=== PATIENT | male | born 1990 | race Two or more races ===

== ENCOUNTER 2017-04-25 11:31 | Inpatient (IN) | payer SELFPAY ==
[~2017-04-25] VITALS: Ht 180.3 cm; Wt 88.9 kg
[2017-04-25] VITALS (9 sets, daily range): BP systolic 120–138; BP diastolic 68–82
[~2017-04-25 11:31] MED LIST: INSU100I17 SQ; INSU100I18 SQ; METF850T2 PO
[2017-04-25] MEDS ORDERED: IV NORMAL SALINE 1000ML BAG 1,000 ML IV SCH ×3 (11:33→13:33)
--- NOTE | 2017-04-25 11:35 | PHYS DOC ---
Past Medical History Past Medical History: No Pertinent History Past Surgical History: No Surgical History Alcohol Use: None Drug Use: None Adult General Chief Complaint Chief Complaint: BLOOD SUGAR PROBLEM HPI HPI Patient is a 26 year old male who presents with hyper glycemia. He states he was diagnosed with diabetes about 2 years ago started on metformin. He does not have a primary care physician. He states over the last several days he's been having a fever and nasal congestion and he was seen by physician today who noticed his sugar in the 200 ranges him here to be evaluated. He denies any fevers chills nausea vomiting. Does state that he has been urinating a lot and drinking a lot of water. Review of Systems Review of Systems Constitutional: Denies fever or chills [] Eyes: Denies change in visual acuity, redness, or eye pain [] HENT: Denies nasal congestion or sore throat [] Respiratory: Denies cough or shortness of breath [] Cardiovascular: No additional information not addressed in HPI [] GI: Denies abdominal pain, nausea, vomiting, bloody stools or diarrhea [] : Denies dysuria or hematuria [] Musculoskeletal: Denies back pain or joint pain [] Integument: Denies rash or skin lesions [] Neurologic: Denies headache, focal weakness or sensory changes [] Endocrine: Denies polyuria or polydipsia [] Current Medications Current Medications Current Medications Medications (Trade) Dose Ordered Sig/Kim Start Time Stop Time Status Last Admin Dose Admin Insulin Human Regular 150 unit/ Sodium Chloride 151.5 ml @ 0 mls/hr CONT PRN PRN 04/25/17 13:30 UNV Potassium Chloride 100 ml @ 100 mls/hr PRN Q1HR PRN 04/25/17 13:30 Sodium Chloride 1,000 ml @ 1,000 mls/hr Q1H 04/25/17 13:30 04/25/17 14:32 DC 04/25/17 14:21 1,000 MLS/HR Allergies Allergies Allergies Coded Allergies Type Severity Reaction Last Updated Verified No Known Drug Allergies 06/19/14 No Physical Exam Physical Exam Constitutional: Well developed, well nourished, no acute distress, non-toxic appearance. [] HENT: Normocephalic, atraumatic, bilateral external ears normal, oropharynx moist, no oral exudates, nose normal. [] Eyes: PERRLA, EOMI, conjunctiva normal, no discharge. [] Neck: Normal range of motion, no tenderness, supple, no stridor. [] Cardiovascular:Heart rate regular tachycardic rhythm, no murmur [] Lungs & Thorax: Bilateral breath sounds clear to auscultation [] Abdomen: Bowel sounds normal, soft, no tenderness, no masses, no pulsatile masses. [] Skin: Warm, dry, no erythema, no rash. [] Back: No tenderness, no CVA tenderness. [] Extremities: No tenderness, no cyanosis, no clubbing, ROM intact, no edema. [] Neurologic: Alert and oriented X 3, normal motor function, normal sensory function, no focal deficits noted. [] Psychologic: Affect normal, judgement normal, mood normal. [] Current Patient Data Vital Signs Vital Signs Date Time Temp Pulse Resp B/P (MAP) Pulse Ox O2 Delivery O2 Flow Rate FiO2 04/25/17 12:45 102 18 129/78 (95) 98 Room Air 04/25/17 11:45 98.4 98.4 Lab Values Laboratory Tests Test 04/25/17 11:52 04/25/17 11:56 04/25/17 12:00 04/25/17 12:30 Urine Collection Type Unknown Urine Color Yellow Urine Clarity Clear Urine pH 6.0 Urine Specific [place] >=1.030 Urine Protein 30 mg/dL (NEG-TRACE) Urine Glucose (UA) >=1000 mg/dL (NEG) Urine Ketones (Stick) >=80 mg/dL (NEG) Urine Blood Trace (NEG) Urine Nitrite Negative (NEG) Urine Bilirubin Negative (NEG) Urine Urobilinogen Dipstick 0.2 mg/dL (0.2 mg/dL) Urine Leukocyte Esterase Negative (NEG) Urine RBC 0 /HPF (0-2) Urine WBC 0 /HPF (0-4) Urine Squamous Epithelial Cells Few /LPF Urine Bacteria 0 /HPF (0-FEW) Urine Opiates Screen Neg (NEG) Urine Methadone Screen Neg (NEG) Urine Barbiturates Neg (NEG) Urine Phencyclidine Screen Neg (NEG) Urine Amphetamine/Methamphetamine Neg (NEG) Urine Benzodiazepines Screen Neg (NEG) Urine Cocaine Screen Neg (NEG) Urine Cannabinoids Screen Neg (NEG) Urine Ethyl Alcohol Neg (NEG) Glucose (Fingerstick) 373 mg/dL (70-99) H White Blood Count 10.6 x10^3/uL (4.0-11.0) Red Blood Count 5.57 x10^6/uL (4.30-5.70) Hemoglobin 15.3 g/dL (13.0-17.5) Hematocrit 45.9 % (39.0-53.0) Mean Corpuscular Volume 82 fL (79-100) Mean Corpuscular Hemoglobin 28 pg (25-35) Mean Corpuscular Hemoglobin Concent 33 g/dL (31-37) Red Cell Distribution Width 13.6 % (11.5-14.5) Platelet Count 286 x10^3/uL (140-400) Neutrophils (%) (Auto) 72 % (31-73) Lymphocytes (%) (Auto) 16 % (24-48) L Monocytes (%) (Auto) 11 % (0-9) H Eosinophils (%) (Auto) 1 % (0-3) Basophils (%) (Auto) 1 % (0-3) Neutrophils # (Auto) 7.6 x10^3uL (1.8-7.7) Lymphocytes # (Auto) 1.7 x10^3/uL (1.0-4.8) Monocytes # (Auto) 1.2 x10^3/uL (0.0-1.1) H Eosinophils # (Auto) 0.1 x10^3/uL (0.0-0.7) Basophils # (Auto) 0.1 x10^3/uL (0.0-0.2) Sodium Level 134 mmol/L (136-145) L Potassium Level 4.1 mmol/L (3.5-5.1) Chloride Level 99 mmol/L (98-107) Carbon Dioxide Level 19 mmol/L (21-32) L Anion Gap 16 (6-14) H Blood Urea Nitrogen 11 mg/dL (8-26) Creatinine 1.0 mg/dL (0.7-1.3) Estimated GFR (Cockcroft-Gault) 91.0 Glucose Level 441 mg/dL (70-99) H Calcium Level 8.5 mg/dL (8.5-10.1) Magnesium Level 1.7 mg/dL (1.8-2.4) L Total Bilirubin 0.6 mg/dL (0.2-1.0) Direct Bilirubin 0.2 mg/dL (0.0-0.2) Aspartate Amino Transferase (AST) 12 U/L (15-37) L Alanine Aminotransferase (ALT) 11 U/L (16-63) L Alkaline Phosphatase 131 U/L (46-116) H Creatine Kinase 173 U/L (39-308) Creatine Kinase MB (Mass) 2.4 ng/mL (0.0-3.6) Creatine Kinase MB Relative Index 1.4 % (0-4) Total Protein 6.8 g/dL (6.4-8.2) Albumin 3.1 g/dL (3.4-5.0) L Lipase 240 U/L (73-393) Laboratory Tests 04/25/17 12:00 Laboratory Tests 04/25/17 12:30 EKG EKG [] Radiology/Procedures Radiology/Procedures [] Impressions: DKA Course & Med Decision Making Course & Med Decision Making Pertinent Labs and Imaging studies reviewed. (See chart for details) Patient presents with hyperglycemia and his labs show DKA. He was started on the DKA protocol and is being admitted to the ICU. Dr. Da Putnam patient's being admitted to ICU in stable condition this time Critical care time: 65 minutes of critical care time was used on this patient excluding procedures. Dragon Disclaimer Dragon Disclaimer This electronic medical record was generated, in whole or in part, using a voice recognition dictation system. Departure Departure Impression: Primary Impression: DKA (diabetic ketoacidoses) Disposition: ADMITTED INPATIENT Admitting Physician: Melissa Guzman Condition: STABLE Referrals: NON,STAFF (PCP) SUDHIR KEARNEY MD Apr 25, 2017 11:35
[2017-04-25 12:12] LABS: BACTERIA,URINE 0 /HPF (0-FEW); BILIRUBIN,URINE NEGATIVE (NEG); GLUCOSE,URINE >=1000 mg/dL (NEG); NITRITE,URINE NEGATIVE (NEG); PROTEIN,URINE 30 mg/dL (NEG-TRACE); RBC,URINE 0 /HPF (0-2); SQUAMOUS EPITHELIAL CELL,UR FEW /LPF; UROBILINOGEN,URINE 0.2 mg/dL (0.2 mg/dL); WBC,URINE 0 /HPF (0-4)
[2017-04-25 12:18] LABS: BASO # 0.1 x10^3/uL (0.0-0.2); BASO % 1 % (0-3); EOS % 1 % (0-3); HEMATOCRIT 45.9 % (39.0-53.0); HEMOGLOBIN 15.3 g/dL (13.0-17.5); LYMPH # 1.7 x10^3/uL (1.0-4.8); LYMPH % 16 % (24-48); MEAN CORPUSCULAR HEMOGLOBIN 28 pg (25-35); MEAN CORPUSCULAR HGB CONC 33 g/dL (31-37); MEAN CORPUSCULAR VOLUME 82 fL (79-100); MONO % 11 % (0-9); NEUT % 72 % (31-73); PLATELET COUNT 286 x10^3/uL (140-400); RED BLOOD COUNT 5.57 x10^6/uL (4.30-5.70); RED CELL DISTRIBUTION WIDTH 13.6 % (11.5-14.5); WHITE BLOOD COUNT 10.6 x10^3/uL (4.0-11.0)
[2017-04-25 12:25] LABS: BARBITURATES NEG (NEG); BENZODIAZEPINES NEG (NEG); CANNABINOIDS NEG (NEG); COCAINE NEG (NEG); METHADONE NEG (NEG); OPIATES NEG (NEG); PHENCYCLIDINE NEG (NEG)
[2017-04-25 12:42] LABS: CALCIUM 8.5 mg/dL (8.5-10.1); POTASSIUM 4.1 mmol/L (3.5-5.1)
[2017-04-25 12:47] LABS: ALBUMIN 3.1 g/dL (3.4-5.0); DIRECT BILIRUBIN 0.2 mg/dL (0.0-0.2); TOTAL BILIRUBIN 0.6 mg/dL (0.2-1.0); TOTAL PROTEIN 6.8 g/dL (6.4-8.2)
[2017-04-25 12:56] LABS: CKMB MASS 2.4 ng/mL (0.0-3.6)
[2017-04-25] MEDS ORDERED: POTASSIUM CHLORIDE 10MEQ 100 ML IV PRN ×3 (13:30)
[2017-04-25] MEDS ORDERED: INSULIN REGULAR VIAL 150 UNIT in 0.9 % SODIUM CHLORIDE 150ML 150 ML IV PRN (13:30)
[2017-04-25] MEDS ORDERED: IV 1/2 NORMAL SALINE 1,000 ML IV SCH ×2 (13:31→13:33)
[2017-04-25] MEDS ORDERED: IV DEXTROSE 5 %-0.45 % NACL 1,000 ML IV SCH (13:33)
[2017-04-25] MEDS ORDERED: INSULIN,REGULAR 150 UNIT DRIP 150 ML IV ONE (13:45)
[2017-04-25 14:53] LABS: HCO3 ABG 14 mmol/L (21-28); PCO2 ABG 28 mmHg (35-46); PH ABG 7.31 (7.35-7.45); PO2 ABG 99 mmHg (85-108); SAT O2 ABG 97 % (92-99)
[2017-04-25] MEDS ORDERED: MAGNESIUM SULFATE 2GM 50 ML IV ONE (15:30)
--- NOTE | 2017-04-25 15:39 | PDOC1 ---
History and Physical Date of Admission Date of Admission DATE: 04/25/17 TIME: 15:30 Identification/Chief Complaint Chief Complaint generalized weakness, [facility] by [facility] Problems: Source Source: Caregiver, Chart review, Patient History of Present Illness History of Present Illness 26 y.o heavy set male, dx with DM type 1 by [facility] 2 yrs ago when he was admitted and needed to be on insulin gtt, HE tells me he takes his metformin, ( never on in insulin)- but his home meds give me novolog and levemir. Hgba1c last was 12 as per pt, BS 400s on arrival, now 293 after IVF and insulin gtt started at ER DKA protocol. BIcarb 19, gap 16, pH 7.31. NO emesis, no abd pain, Recently fighting URI sxs, nasal voice, congestion, cough, no fevers. HE thinks he got from his mother. NOn smoker, no etoh, no surgical hx, NKDA. Ketonuria and glucosuria on UA, but no UTI Past Medical History Endocrine: Diabetes Past Surgical History Past Surgical History: No pertinent history Family History Family History: Hypertension Social History Smoke: No ALCOHOL: none Drugs: None Current Medications Current Medications Current Medications Sodium Chloride 1,000 ml @ 1,000 mls/hr Q1H IV Last administered on 04/25/17 12:11; Start 04/25/17 at 11:33; Stop 04/25/17 at 12:32; Status DC Sodium Chloride 1,000 ml @ 1,000 mls/hr Q1H IV Last administered on 04/25/17 14:21; Start 04/25/17 at 13:30; Stop 04/25/17 at 14:32; Status DC Sodium Chloride 1,000 ml @ 500 mls/hr Q2H IV ; Start 04/25/17 at 13:31; Stop at 15:30 Sodium Chloride 1,000 ml @ 250 mls/hr Q4H IV Last administered on 04/25/17 15 :25; Start 04/25/17 at 13:33 Sodium Chloride 1,000 ml @ 250 mls/hr Q4H IV ; Start 04/25/17 at 13:33 Dextrose/Sodium Chloride 1,000 ml @ 250 mls/hr Q4H IV ; Start 04/25/17 at 13:33 Insulin Human Regular 150 unit/ Sodium Chloride 151.5 ml @ 0 mls/hr CONT PRN PRN IV PER PROTOCOL; Start 04/25/17 at 13:30; Status UNV Potassium Chloride 100 ml @ 100 mls/hr PRN Q1HR PRN IV SEE COMMENTS; Start at 13:30 Potassium Chloride 100 ml @ 100 mls/hr PRN Q1HR PRN IV SEE COMMENTS; Start at 13:30 Potassium Chloride 100 ml @ 100 mls/hr PRN Q1HR PRN IV SEE COMMENTS; Start at 13:30 Insulin Human Regular 150 ml @ 0 mls/hr 1X ONCE IV Last administered on t 14:21; Start 04/25/17 at 13:45; Stop 04/25/17 at 13:46; Status DC Active Scripts Active Metformin Hcl 850 Mg Tablet 1 Tab PO BID Levemir Flexpen (Insulin Detemir) 300 Units/3 Ml Insuln.pen 30 Units SQ QHS Novolog Flexpen (Insulin Aspart) 300 Units/3 Ml Insuln.pen 12 Units SQ TIDAC Allergies Allergies: Coded Allergies: No Known Drug Allergies (Unverified , 06/19/14) ROS Review of System as per hPI, all 14 pt reviewed, neg Physical Exam General: Alert, Oriented X3, Cooperative, No acute distress HEENT: Atraumatic, PERRLA, EOMI Lungs: Clear to auscultation, Normal air movement Heart: S1S2, RRR, no thrills, no rubs, no gallops, no murmurs Cardiovascular: S1, S2 Abdomen: Normal bowel sounds, Soft, No tenderness, No hepatosplenomegaly, No masses Male Genitals Exam: normal genitalia, normal prostate Rectal Exam: not examined PELVIC: Nml ext genitalia Extremities: No clubbing, No cyanosis, No edema, Normal pulses, No tenderness/ swelling Skin: No rashes, No breakdown, No significant lesion Neuro: Normal gait, Normal speech, Strength at 5/5 X4 ext, Normal tone, Sensation intact, Cranial nerves 3-12 NL, Reflexes 2+ Psych/Mental Status: Mental status NL, Mood NL Vitals Vitals Vital Signs Date Time Temp Pulse Resp B/P (MAP) Pulse Ox O2 Delivery O2 Flow Rate FiO2 04/25/17 14:58 Room Air 04/25/17 13:45 96 18 125/77 (93) 98 04/25/17 11:45 98.4 98.4 Labs Labs Laboratory Tests Test 04/25/17 11:52 04/25/17 11:56 04/25/17 12:00 04/25/17 12:30 Urine Collection Type Unknown Urine Color Yellow Urine Clarity Clear Urine pH 6.0 Urine Specific [place] >=1.030 Urine Protein 30 mg/dL (NEG-TRACE) Urine Glucose (UA) >=1000 mg/dL (NEG) Urine Ketones (Stick) >=80 mg/dL (NEG) Urine Blood Trace (NEG) Urine Nitrite Negative (NEG) Urine Bilirubin Negative (NEG) Urine Urobilinogen Dipstick 0.2 mg/dL (0.2 mg/dL) Urine Leukocyte Esterase Negative (NEG) Urine RBC 0 /HPF (0-2) Urine WBC 0 /HPF (0-4) Urine Squamous Epithelial Cells Few /LPF Urine Bacteria 0 /HPF (0-FEW) Urine Opiates Screen Neg (NEG) Urine Methadone Screen Neg (NEG) Urine Barbiturates Neg (NEG) Urine Phencyclidine Screen Neg (NEG) Urine Amphetamine/Methamphetamine Neg (NEG) Urine Benzodiazepines Screen Neg (NEG) Urine Cocaine Screen Neg (NEG) Urine Cannabinoids Screen Neg (NEG) Urine Ethyl Alcohol Neg (NEG) Glucose (Fingerstick) 373 mg/dL (70-99) White Blood Count 10.6 x10^3/uL (4.0-11.0) Red Blood Count 5.57 x10^6/uL (4.30-5.70) Hemoglobin 15.3 g/dL (13.0-17.5) Hematocrit 45.9 % (39.0-53.0) Mean Corpuscular Volume 82 fL (79-100) Mean Corpuscular Hemoglobin 28 pg (25-35) Mean Corpuscular Hemoglobin Concent 33 g/dL (31-37) Red Cell Distribution Width 13.6 % (11.5-14.5) Platelet Count 286 x10^3/uL (140-400) Neutrophils (%) (Auto) 72 % (31-73) Lymphocytes (%) (Auto) 16 % (24-48) Monocytes (%) (Auto) 11 % (0-9) Eosinophils (%) (Auto) 1 % (0-3) Basophils (%) (Auto) 1 % (0-3) Neutrophils # (Auto) 7.6 x10^3uL (1.8-7.7) Lymphocytes # (Auto) 1.7 x10^3/uL (1.0-4.8) Monocytes # (Auto) 1.2 x10^3/uL (0.0-1.1) Eosinophils # (Auto) 0.1 x10^3/uL (0.0-0.7) Basophils # (Auto) 0.1 x10^3/uL (0.0-0.2) Sodium Level 134 mmol/L (136-145) Potassium Level 4.1 mmol/L (3.5-5.1) Chloride Level 99 mmol/L (98-107) Carbon Dioxide Level 19 mmol/L (21-32) Anion Gap 16 (6-14) Blood Urea Nitrogen 11 mg/dL (8-26) Creatinine 1.0 mg/dL (0.7-1.3) Estimated GFR (Cockcroft-Gault) 91.0 Glucose Level 441 mg/dL (70-99) Calcium Level 8.5 mg/dL (8.5-10.1) Magnesium Level 1.7 mg/dL (1.8-2.4) Total Bilirubin 0.6 mg/dL (0.2-1.0) Direct Bilirubin 0.2 mg/dL (0.0-0.2) Aspartate Amino Transf (AST/SGOT) 12 U/L (15-37) Alanine Aminotransferase (ALT/SGPT) 11 U/L (16-63) Alkaline Phosphatase 131 U/L (46-116) Creatine Kinase 173 U/L (39-308) Creatine Kinase MB (Mass) 2.4 ng/mL (0.0-3.6) Creatine Kinase MB Relative Index 1.4 % (0-4) Total Protein 6.8 g/dL (6.4-8.2) Albumin 3.1 g/dL (3.4-5.0) Lipase 240 U/L (73-393) Test 04/25/17 14:06 04/25/17 14:11 O2 Saturation 97 % (92-99) Arterial Blood pH 7.31 (7.35-7.45) Arterial Blood pCO2 at Patient Temp 28 mmHg (35-46) Arterial Blood pO2 at Patient Temp 99 mmHg (85-108) Arterial Blood HCO3 14 mmol/L (21-28) Arterial Blood Base Excess -11 mmol/L (-3-3) FiO2 21.0 Glucose (Fingerstick) 363 mg/dL (70-99) Laboratory Tests Test 04/25/17 11:52 04/25/17 11:56 04/25/17 12:00 04/25/17 12:30 Urine Collection Type Unknown Urine Color Yellow Urine Clarity Clear Urine pH 6.0 Urine Specific [place] >=1.030 Urine Protein 30 mg/dL (NEG-TRACE) Urine Glucose (UA) >=1000 mg/dL (NEG) Urine Ketones (Stick) >=80 mg/dL (NEG) Urine Blood Trace (NEG) Urine Nitrite Negative (NEG) Urine Bilirubin Negative (NEG) Urine Urobilinogen Dipstick 0.2 mg/dL (0.2 mg/dL) Urine Leukocyte Esterase Negative (NEG) Urine RBC 0 /HPF (0-2) Urine WBC 0 /HPF (0-4) Urine Squamous Epithelial Cells Few /LPF Urine Bacteria 0 /HPF (0-FEW) Urine Opiates Screen Neg (NEG) Urine Methadone Screen Neg (NEG) Urine Barbiturates Neg (NEG) Urine Phencyclidine Screen Neg (NEG) Urine Amphetamine/Methamphetamine Neg (NEG) Urine Benzodiazepines Screen Neg (NEG) Urine Cocaine Screen Neg (NEG) Urine Cannabinoids Screen Neg (NEG) Urine Ethyl Alcohol Neg (NEG) Glucose (Fingerstick) 373 mg/dL (70-99) White Blood Count 10.6 x10^3/uL (4.0-11.0) Red Blood Count 5.57 x10^6/uL (4.30-5.70) Hemoglobin 15.3 g/dL (13.0-17.5) Hematocrit 45.9 % (39.0-53.0) Mean Corpuscular Volume 82 fL (79-100) Mean Corpuscular Hemoglobin 28 pg (25-35) Mean Corpuscular Hemoglobin Concent 33 g/dL (31-37) Red Cell Distribution Width 13.6 % (11.5-14.5) Platelet Count 286 x10^3/uL (140-400) Neutrophils (%) (Auto) 72 % (31-73) Lymphocytes (%) (Auto) 16 % (24-48) Monocytes (%) (Auto) 11 % (0-9) Eosinophils (%) (Auto) 1 % (0-3) Basophils (%) (Auto) 1 % (0-3) Neutrophils # (Auto) 7.6 x10^3uL (1.8-7.7) Lymphocytes # (Auto) 1.7 x10^3/uL (1.0-4.8) Monocytes # (Auto) 1.2 x10^3/uL (0.0-1.1) Eosinophils # (Auto) 0.1 x10^3/uL (0.0-0.7) Basophils # (Auto) 0.1 x10^3/uL (0.0-0.2) Sodium Level 134 mmol/L (136-145) Potassium Level 4.1 mmol/L (3.5-5.1) Chloride Level 99 mmol/L (98-107) Carbon Dioxide Level 19 mmol/L (21-32) Anion Gap 16 (6-14) Blood Urea Nitrogen 11 mg/dL (8-26) Creatinine 1.0 mg/dL (0.7-1.3) Estimated GFR (Cockcroft-Gault) 91.0 Glucose Level 441 mg/dL (70-99) Calcium Level 8.5 mg/dL (8.5-10.1) Magnesium Level 1.7 mg/dL (1.8-2.4) Total Bilirubin 0.6 mg/dL (0.2-1.0) Direct Bilirubin 0.2 mg/dL (0.0-0.2) Aspartate Amino Transf (AST/SGOT) 12 U/L (15-37) Alanine Aminotransferase (ALT/SGPT) 11 U/L (16-63) Alkaline Phosphatase 131 U/L (46-116) Creatine Kinase 173 U/L (39-308) Creatine Kinase MB (Mass) 2.4 ng/mL (0.0-3.6) Creatine Kinase MB Relative Index 1.4 % (0-4) Total Protein 6.8 g/dL (6.4-8.2) Albumin 3.1 g/dL (3.4-5.0) Lipase 240 U/L (73-393) Test 04/25/17 14:06 04/25/17 14:11 O2 Saturation 97 % (92-99) Arterial Blood pH 7.31 (7.35-7.45) Arterial Blood pCO2 at Patient Temp 28 mmHg (35-46) Arterial Blood pO2 at Patient Temp 99 mmHg (85-108) Arterial Blood HCO3 14 mmol/L (21-28) Arterial Blood Base Excess -11 mmol/L (-3-3) FiO2 21.0 Glucose (Fingerstick) 363 mg/dL (70-99) VTE Prophylaxis Ordered VTE Prophylaxis Devices: Yes VTE Pharmacological Prophylaxi: Yes Assessment/Plan Assessment/Plan 1. DKA 2. URI sx 3. DM uncontrolled 4. Obesity BMI - 5. SIRS POA< no sepsis 6. PSeudohyponatremia 7, REactive thrombocytosis 8. Hypomagnesemia 9. Mod PCM Plan: ICU admit DKA protocol 2 gms mag now IV x 1 ok for ADA diet Recheck mag reji BMP q4 till gap closes DM counselling CHeck CXR - URI sxs that might have pushed him to DKA ANtibiotics of CXR reads PNA Nutrition consult for PCM Dw NURSING PROJECT COORDINATOR and pt DESTIN MARRUFO MD Apr 25, 2017 15:39
[2017-04-25] MEDS ORDERED: METF500T4 PO (15:41)
[2017-04-25] MEDS ORDERED: CETIRIZINE HCL 10 MG TABLET. PO PRN (15:45)
[2017-04-25] MEDS ORDERED: guaiFENesin DM 200MG/20MG 10 ML SYRUP PO PRN (15:45)
[2017-04-25 17:09] LABS: CALCIUM 8.7 mg/dL (8.5-10.1); CREATININE 0.9 mg/dL (0.7-1.3); GFR 102.8; PHOSPHORUS 1.8 mg/dL (2.6-4.7); POTASSIUM 3.2 mmol/L (3.5-5.1)
[2017-04-25] MEDS: metFORMIN 850 MG TABLET PO SCH (17:35)
[2017-04-25] MEDS: INSULIN ASPART 300 UNITS/3 ML INSULN.PEN SQ SCH ×2 (17:36→21:11)
[2017-04-25] MEDS ORDERED: POTASSIUM CITRATE 10 MEQ TABLET.ER PO ONE (18:00)
[2017-04-25] MEDS ORDERED: POTASSIUM CHLORIDE 20 MEQ TABLET.ER. PO ONE (18:30)
[2017-04-25] MEDS ORDERED: DEXTROSE 50% 25 GM / 50ML DISP.SYRIN. IV PRN ×3 (19:00→20:15)
[2017-04-25] MEDS ORDERED: INSULIN ASPART 300 UNITS/3 ML INSULN.PEN SQ SCH (21:00)
[2017-04-25] MEDS ORDERED: INSULIN DETEMIR 300 UNITS/3 ML INSULN.PEN. SQ SCH (21:00)
[2017-04-26] VITALS (11 sets, daily range): BP systolic 119–142; BP diastolic 70–93
--- NOTE | 2017-04-26 02:18 | ACF ---
Admission Forms Criteria GENERAL ADMISSION CRITERIA (Place 'X' for any and all applicable criteria): Admission is indicated for ANY ONE of the following: [ ]I. Hemodynamic instability as indicated by ANY ONE of the following(1)(2) (3)(4)(5): [ ]a) Vital sign abnormality not readily corrected by appropriate treatment within 12 to 24 hours indicated by ANY ONE of the following: [ ]i) Hypotension [ ]ii) Symptomatic Tachycardia unresponsive to treatment (eg , analgesia, fluids, sedation as indicated) [ ]iii) Orthostatic vital sign changes unresponsive to treatment (eg, fluids) [ ]b) Vital sign abnormality that is severe indicated by ANY ONE of the following: [ ]i) Inadequate perfusion indicated by ANY ONE of the following: [ ]1) Lactic acidosis (greater than 2 mmol/L) [ ]2) New abnormal capillary refill (greater than 3 seconds) [ ]3) Other metabolic acidosis (arterial pH less than 7.35) not otherwise explained [ ]4) Reduced urine output [ ]5) Altered mental status [ ]6) Myocardial Ischemia [ ]v) Mean arterial pressure[A] less than 60 mm Hg [ ]vi) Mean arterial pressure[A] less than 70 mm Hg after 30 minutes of appropriate treatment (eg, fluid resuscitation) [ ]vii) IV inotropic or vasopressor medication required to maintain adequate blood pressure or perfusion [ ]viii) Sustained heart rate greater than 120 beats per minute in adult or child 6 years or older[B]] [ ]II. Hypertension requiring inpatient treatment as indicated by ANY ONE of the following(6)(7)(8): [ ]a) SBP greater than 220 mm Hg or DBP greater than 120 mm Hg despite treatment [ ]b) SBP greater than 140 mm Hg or DBP greater than 100 mm Hg with evidence of acute end organ damage as indicated by ANY ONE of the following: [ ]i) Encephalopathy [ ]ii) Acute renal failure as indicated by new onset of ANY ONE of the following(9)(10)(11)(12)(13): [ ]1) A 3-fold rise in serum creatinine from baseline [ ]2) Serum creatinine greater than 4 mg/dL ( 354 micromoles/L) with acute rise greater than 0.5 mg/dL (44.2 micromoles/L) [ ]3) Reduction of more than 75% in estimated glomerular filtration rate from baseline [ ]4) Estimated glomerular filtration rate less than 35 mL/min/1.73m2 (0.59 mL/sec/1.73m2) in child up to 18 years of age [ ]5) Cessation of urine output indicated by ALL of the following: [ ]A. Adequate volume status [ ]B. Inadequate urine output as indicated by ANY ONE of the following: [ ]a. Urine output less than 0.3 mL/kg/hr for 24 hours [ ]b. Anuria (urine output less than 0.1 mL/kg/hr) for 12 hours [ ]iii) Aortic dissection [ ]iv) Myocardial ischemia [ ]v) Left ventricular heart failure [ ]vi) Retinal hemorrhage [ ]vii) Other significant finding [ ]c) Hypertension in child requiring inpatient treatment as indicated by ALL of the following(14)(15)(16): [ ]i) Outpatient treatment not effective, not available, or not appropriate [ ]ii) SBP or DBP greater than 95th percentile for age [ ]iii) Evidence of acute end organ damage as indicated by ANY ONE of the following: [ ]1) Altered mental status [ ]2) Acute renal failure as indicated by new onset of ANY ONE of the following(9)(10)(11)(12)(13): [ ]A. A 3-fold rise in serum creatinine from baseline [ ]B. Serum creatinine greater than 4 mg/dL (354 micromoles/L) with acute rise greater than 0.5 mg/dL (44.2 micromoles/L) [ ]C. Reduction of more than 75% in estimated glomerular filtration rate from baseline [ ]D. Estimated glomerular filtration rate less than 35 mL/min/1.73m2 (0.59 mL/sec/1.73m2)in child up to 18 years of age [ ]E. Cessation of urine output indicated by ALL of the following: [ ]a. Adequate volume status [ ]b. Inadequate urine output as indicated by ANY ONE of the following: [ ]1) Urine output less than 0.3 mL/kg/hr for 24 hours [ ]2) Anuria (urine output less than 0.1 mL/kg/hr) for 12 hours [ ]3) Severe headache [ ]4) Visual disturbance [ ]5) Retinal hemorrhage [ ]6) Other significant finding [ ]III. Acute cardiac or peripheral ischemia as indicated by ANY ONE of the following: [ ]a) Acute coronary syndrome(17)(18) [ ]b) Acute peripheral ischemia (eg, pulseless, cool, mottled, or cyanotic extremity)(19) [ ]IV. Cardiac arrhythmias or findings of immediate concern indicated by ANY ONE of the following(20)(21): [ ]a) Heart rhythms that are inherently dangerous or unstable indicated by ANY ONE of the following(22)(23)(24): [ ]i) Resuscitated ventricular fibrillation or cardiac arrest [ ]ii) Ventricular escape rhythm [ ]iii) Sustained ventricular tachycardia (30 seconds or more of ventricular rhythm at greater than 100 beats per minute) [ ]iv) Nonsustained ventricular tachycardia and ANY ONE of the following: [ ]1) Suspected cardiac ischemia as cause or consequence of ventricular tachycardia [ ]2) In setting of acute myocarditis [ ]b) Unstable cardiac conduction defects indicated by ANY ONE of the following(24)(25)(26): [ ]i) Type II second-degree atrioventricular block [ ]ii) Third-degree atrioventricular block [ ]iii) New-onset left bundle branch block with suspected myocardial ischemia [ ]c) Any heart rhythm and ANY ONE of the following(22)(23)(27)(28)( 29): [ ] i) Continuous long-term ECG monitoring needed (eg, initiation of drug requiring monitoring for more than 24 hours) [ ] ii) Patient has automatic implanted cardioverter defibrillator that is repeatedly firing, malfunctioning, or in need of immediate adjustment of settings beyond the scope of ambulatory or observation care. [ ]d) Heart rhythms of concern due to ANY ONE of the following: [ ]i) Hypotension [ ]ii) Respiratory distress [ ]iii) Association with other significant symptoms (eg, bradycardia with syncope or ongoing dizziness, supraventricular tachycardia with chest pain) (27)(28) (30) [ ] V. Severe heart failure as indicated by ANY ONE of the following ( 31)(32): [ ]a) Respiratory distress [ ]b) Hypotension [ ]c) Anasarca (refractory to outpatient therapy) [ ]d) Cardiac arrhythmias of immediate concern [ ]e) Myocardial ischemia [ ]. Respiratory abnormalities, including ANY ONE of the following(33)(34) (35)(36): [ ]a) Respiratory rate greater than 30 breaths per minute unresponsive to treatment [A] [ ]b) New saturation of arterial oxygen less than 90% [ ]c) New partial pressure of carbon dioxide greater than 44 mm Hg ( 5.9 kPa) [ ]d) Supplemental oxygen or respiratory treatments needed that are new or not performable at other levels of care [ ]e) New-onset cyanosis [ ]f) Inability to protect airway [ ]g) Chronic lung disease with severe deterioration (not responsive to emergency and observation care treatment as appropriate) as indicated by ANY ONE of the following(34)(36 ): [ ]i) SaO2 5% below baseline in patient with chronic hypoxemia [ ]ii) New requirement for supplemental oxygen to keep SaO2 at baseline or acceptable level [ ]iii) Required supplemental oxygen performable only in acute inpatient setting [ ]iv) Severe airflow or ventilation abnormalities [ ]v) Previously mobile patient unable to walk between rooms [ ]vi Inability to eat or sleep due to dyspnea [ ]vii) Rapid rate of exacerbation onset [ ]viii) Altered mental status ]VII. Severe airflow or ventilation abnormalities (not responsive to emergency and observation care treatment as appropriate) as indicated by ANY ONE of the following(33)(34)(35)(37): [ ]a) PCO2 greater than 42 mm Hg (5.6 kPa) and pH less than 7.35 (new ) [ ]b) Documented PCO2 increased more than 5 mm Hg (0.7 kPa) from disease baseline [ ]c) Airflow measurements [B] less than 60% of previous best or predicted (eg, peak expiratory flow rate less than 300 L/minute) despite intensive emergent treatment [C] [ ]d) Required respiratory treatments that are performable only in acute inpatient setting [ ]VIII. Impending or actual respiratory arrest ( Also use Respiratory Failure GRG for severe respiratory disease and long-term mechanical ventilation patients) [ ]IX. Neurologic abnormalities, including ANY ONE of the following: [ ]a) New findings that suggest ANY ONE of the following: [ ]i) ROCK [employer] infection(38) [ ]ii) Cerebral bleeding, ischemia, or vasospasm(39)(40) [ ]iii) Increased intracranial pressure, hydrocephalus, or cerebral edema(41)(42)(43) [ ]iv) Spinal cord injury(44) [ ]b) Uncontrolled seizures(45) [ ]c) New-onset coma (eg, Meagan coma scale score less than 9) or unexplained abnormal mental status (eg, Meagan coma scale score less than 14) [D](41)(46)(47) [ ]X. New-onset severe neurologic findings requiring inpatient care; examples include(42)(48)(49): [ ]a) Papilledema [ ]b) Cerebral edema [ ]c) Mass effect on CT scan [ ]XI. Suspected acute intra-abdominal process with peritoneal signs, abdominal mass, or similar findings (50)(51)(52) [X]XII. Severe physiologic disorder remaining after emergency or observation level care (as appropriate) as indicated by ANY ONE of the following (53): [ ]a) Significant dehydration [X]b) Diabetic ketoacidosis [ ]c) Hyperglycemic hyperosmolar state (eg, osmolality greater than 320 mOsm/kg (mmol/kg) [ ]d) Hypoglycemia [ ]e) Other (new) acid-base disorder with pH less than 7.35 or greater than 7.5(54) [ ]f) Thyroid storm (55) [ ]g) Myxedema coma (55) [ ]XIII. Abdominal abnormalities with ANY ONE of the following(56)(57): [ ]a) Absent bowel sounds with complete ileus [ ]b) Signs of intestinal obstruction or peritonitis [E] [ ]c) Nausea and vomiting that cannot be controlled with outpatient or observation care [ ]XIV. Acute renal failure as indicated by new onset of ANY ONE of the following(9)(10)(11)(12)(13): [ ]a) A 3-fold rise in serum creatinine from baseline [ ]b) Serum creatinine greater than 4 mg/dL (354 micromoles/L) with acute rise greater than 0.5 mg/dL (44.2 micromoles/L) [ ]c) Reduction of more than 75% in estimated glomerular filtration rate from baseline [ ]d) Estimated glomerular filtration rate less than 35 mL/min/ 1.73m2 (0.59 mL/sec/1.73m2) in child up to 18 years of age [ ]e) Cessation of urine output indicated by ALL of the following: [ ]i) Adequate volume status [ ]ii) Inadequate urine output as indicated by ANY ONE of the following: [ ]1) Urine output less than 0.3 mL/kg/hr for 24 hours [ ]2) Anuria (urine output less than 0.1 mL/kg/hr) for 12 hours [ ]XV. Significant uremic complications as indicated by ANY ONE of the following(58)(59)(60): [ ]a) Outpatient therapy is ineffective or not feasible for ANY ONE of the following: [ ]i) Severe heart failure [ ]ii) Severehypertension [ ]iii) Pleural effusion [ ]iv) Pericarditis or pericardial effusion [ ]b) Cardiac arrhythmias of immediate concern [ ]c) Intractable nausea or vomiting [ ]d) Recurrent seizures [ ]e) Encephalopathy [ ]f) Bleeding abnormalities (eg, platelet dysfunction) with active (eg, gastrointestinal) bleeding [ ]g) Dialysis indicated before long-term access or ambulatory arrangements can be made [ ]h) Significant metabolic or electrolyte abnormalities (eg, severe acidosis or hyperkalemia) [ ]XVI. High fever or other high-risk infection situation as indicated by ANY ONE of the following(61)(62)(63)(64): [ ]a) Outpatient and observation care antimicrobial treatment unavailable, not effective, or not appropriate [ ]b) Documented bacteremia [ ]c) Temperature greater than 40.5 degrees C (104.9 degrees F) ( oral) [ ]d) Temperature greater than 39.5 degrees C (103.1 degrees F) ( oral) or less than 36 degrees C (96.8 degrees F) (rectal) that does not respond to e treatment and observation care [ ] XVII. Temperature less than 95 degrees F (35 degrees C)(rectal)(65) [ ] XVIII. Severe nutritional abnormalities as indicated by ALL of the following (66)(67): [ ]a) Inability to tolerate or establish sufficient oral or other enteral nutrition in outpatient setting [ ]b) Parenteral nutrition regimen need that must be implemented on inpatient basis [ ] XIX. Severe electrolyte abnormalities indicated by ALL of the following(68) (69)(70): [ ]a) Electrolytes and associated findings are not as expected for patient baseline or acceptable treatment effects. [ ]b) Severe abnormalities indicated by ANY ONE of the following: [ ]i) Sodium less than 130 mEq/L (mmol/L) (new) [ ]ii)Sodium less than 135 mEq/L (mmol/L) with ANY ONE of the following: [ ]1) Uncorrectable (to near normal or chronic baseline) after trial of outpatient and emergency treatment [ ]2) Altered mental status [ ]3) Seizures [ ]4) Severe medical etiology requiring inpatient management (eg, heart failure, hypovolemia) [ ]iii) Sodium greater than 155 mEq/L (mmol/L) [ ]iv) Sodium greater than 150 mEq/L (mmol/L) with ANY ONE of the following: [ ]1) Uncorrectable (to near normal or chronic baseline) with outpatient and emergency treatment [ ]2) Altered mental status [ ]3) Seizures [ ]4) Severe medical etiology (eg, hypovolemia, diabetes insipidus) [ ]v) Potassium less than 2.5 mEq/L (mmol/L) despite outpatient and emergency treatment [ ]vi) Potassium less than 3 mEq/L (mmol/L) with ANY ONE of the following: [ ]1) Weakness [ ]2) Cardiac abnormality (eg, arrhythmia, conduction disturbance) [ ]3) Cardiac ischemia [ ]4) Ileus [ ]5) Ongoing medical cause requiring inpatient management (eg, acute renal wasting or SIADH) [ ]6) Other severe symptoms [ ]vii) Potassium greater than 6.5 mEq/L (mmol/L) [ ]viii) Potassium greater than 5 mEq/L (mmol/L) with ANY ONE of the following: [ ]1) Uncorrectable (to near normal or chronic baseline) with outpatient and emergency treatment [ ]2) Severe ECG findings [F] [ ]3) Acute worsening of renal failure (creatinine greater than 2.5 mg/dL (221 micromoles/L) or significant elevation for age and size) [ ]4) Severe weakness [ ]5) Severe medical etiology (eg, hemolysis, infection, drug overdose) [ ]ix) Calcium less than 7 mg/dL (1.75 mmol/L) despite outpatient and emergency treatment (72) [ ]x) Calcium less than 8 mg/dL (2 mmol/L) with significant symptoms or findings; examples include(72): [ ]1) Altered mental status [ ]2) Muscle spasms [ ]3) Seizures [ ]4) Breathing difficulty [ ]5) Cardiac abnormality (eg, arrhythmia or conduction disturbance) [ ]xi) Calcium greater than 14 mg/dL (3.5 mmol/L)(72) [ ]xii) Calcium greater than 12 mg/dL (3 mmol/L) with ANY ONE of the following(72): [ ]1) Uncorrectable (to near normal or chronic baseline) with outpatient and emergency treatment [ ]2) Significant dehydration or hypovolemia as indicated by ALL of the following(70)(73)(74): [ ]A. Not resolved with initial treatments [ ]B. Clinically significant dehydration as indicated by ANY ONE of the following: [ ]a. Vomiting refractory to outpatient treatment (ie, precluding oral rehydration) [ ]b. Inability to drink [ ]c. Hypernatremia or other electrolyte abnormality unable to be corrected with outpatient and emergency treatment [ ]d. Failure to remain hydrated with outpatient therapy [ ]e. Reduced urine output [ ]f. Hypotension [ ]g. Serious cause for dehydration requiring acute hospitalization (eg, bowel obstruction, increased intracranial pressure, infectious cause) [ ]h. Child with ANY ONE of the following(75): [ ]1) Severe abdominal tenderness [ ]2) Adequate care not available at home [ ]3) Severe dehydration ( greater than 9% loss of body weight) [ ]4) Significant symptoms or findings; examples include: [ ]A. Altered mental status [ ]B. Cardiac abnormality (eg, arrhythmia, conduction disturbance) [ ]C. Malignant etiology requiring inpatient treatment [ ]xiii) Phosphorus less than 1 mg/dL (0.32 mmol/L) [ ]xiv) Phosphorus less than 1.5 mg/dL (0.48 mmol/L) with ANY ONE of the following: [ ]1) Patient unresponsive to outpatient and emergency treatment [ ]2) Significant symptoms or findings; examples include: [ ]A. Weakness [ ]B. Altered mental status [ ]C. Breathing difficulty [ ]D. Seizures [ ]E. Rhabdomyolysis [ ]xv) Phosphorus greater than 10 mg/dL (3.2 mmol/L) [ ]xvi) Phosphorus greater than 4.5 mg/dL (1.45 mmol/L) (new) with ANY ONE of the following: [ ]1) Severe medical etiology (eg, crush injury, acute renal failure) [ ]2) Associated hypocalcemia with significant findings; examples include: [ ]A. Neurologic symptoms [ ]B. Altered mental status [ ]C. Muscle spasms [ ]D. Seizures [ ]E. Breathing difficulty [ ]F. Cardiac abnormality (eg, arrhythmia, conduction disturbance) [ ]xvii) Magnesium less than 1 mg/dL (0.41 mmol/L) [ ]xviii) Magnesium less than 1.5 mg/dL (0.62 mmol/L) with ANY ONE of the following: [ ]1) Patient unresponsive to outpatient and emergency treatment [ ]2) Associated hypocalcemia with significant findings; examples include: [ ]A. Altered mental status [ ]B. Muscle spasms [ ]C. Seizures [ ]D. Breathing difficulty [ ]E. Cardiac abnormality (eg, arrhythmia , conduction disturbance) [ ]3) Associated hypokalemia (potassium less than 3 mEq/L (mmol/L)) with risk of arrhythmia [ ]xix) Magnesium greater than 4 mEq/L (2 mmol/L) [ ]xx) Magnesium greater than 2.5 mEq/L (1.25 mmol/L) with significant symptoms or findings; examples include: [ ]1) Weakness [ ]2) Altered mental status [ ]3) Cardiac abnormality (eg, arrhythmia, conduction disturbance) [ ]4) Breathing difficulty [ ]5) Severe medical etiology (eg, renal failure, hypovolemia) [ ]xxi) Uric acid greater than 20 mg/dL (1190 micromoles/L)(76) [ ]xxii) Uric acid greater than 8 mg/dL (476 micromoles/L) with significant symptoms or findings of tumor lysis syndrome; examples include(76): [ ]1) Creatinine greater than 1.5 times upper limit of normal [ ]2) Cardiac abnormality (eg, arrhythmia, conduction disturbance) [ ]3) Seizure [ ]XX. Acute blood loss causing significant abnormality as indicated by ANY ONE of the following(77)(78): [ ]a) Hemoglobin less than 10 g/dL (100 g/L) (not baseline) [ ]b) Hematocrit less than 30% (0.30) (not baseline) [ ]c) Repeat hematocrit decreased more than 2% (0.02) [ ]d) Uncontrolled bleeding [ ]XXI. Severe anemia indicated by ANY ONE of the following(78)(79): [ ]a) Altered mental status [ ]b) Chest pain [ ]c) Exertional dyspnea [ ]d) Syncope [ ]e) Other findings suggesting inadequate perfusion [ ]f) Treatment with transfusion or volume replacement is ineffective at resolving ANY ONE of the following [G]: [ ]i) Tachycardia for age [ ]ii) Orthostatic vital sign changes as indicated by ANY ONE of the following(80): [ ]1) Fall in SBP of 20 mm Hg or more 1 to 3 minutes after patient sits or stands from recumbent position [ ]2) Fall in DBP of 10 mm Hg or more 1 to 3 minutes after patient sits or stands from recumbent position [ ]XXII. High-risk low platelet count as indicated by ANY ONE of the following( 81)(82): [ ]a) Severe or life-threatening bleeding (eg, intracranial, major gastrointestinal, or extensive mucosal bleeding), with any reduced platelet count [ ]b) Platelet count less than 20,000/mm3 (20 x109/L) with any active bleeding [ ]c) Platelet count less than 10,000/mm3 (10 x109/L) with minor purpura or petechiae [ ]d) Platelet count less than 5000/mm3 (5 x109/L) [ ]e) Low platelet count with hemolytic anemia [ ]XXIII. Disseminated intravascular coagulation(77)(83) [ ]XXIV. Severe adverse drug or systemic toxin reaction requiring inpatient treatment; examples include(84)(85): [ ]a) Serotonin syndrome(86) [ ]b) Neuroleptic malignant syndrome(86) [ ]c) Cholinergic syndrome with severe symptoms (eg, bronchorrhea, weakness, mental status changes, seizures) [ ]d) Sympathetic syndrome with severe symptoms (eg, seizures, mental status changes, cardiac dysrhythmias) [ ]e) Anticholinergic syndrome [ ]XXV. Severe pain requiring acute inpatient management as indicated by ALL of the following (87)(88)(89): [ ]a) Continuous or frequent (eg, every 2 to 4 hours) parenteral analgesics required [H] [ ]b) Rapid improvement expected from treatment or acute intervention (eg, surgery, anesthesia procedure) [ ]XXVI.Severe behavioral health issues judged unmanageable at a lower level of care (eg, residential) in a patient who is ANY ONE of the following(91) [ ]a) Acutely suicidal [ ]b) A danger to self (eg, self-mutilating or suicidal behavior) [ ]c) A danger to others (eg, assaultive or homicidal behavior) [ ]d) Incapacitated because of grave disability (eg, inability to provide for self at lower level of care) (92) [ ]XXVII. Inpatient monitoring needed; examples include(1)(3)(87)(93)(94)(95)(96 ): [ ]a) Vital signs, neurologic signs, or vascular checks more frequently than every 4 hours [ ]b) Cardiac or respiratory monitoring beyond the scope (eg, over 24 hours) of observation care [ ]c) Pulmonary artery catheter monitoring [ ]d) Suspected compartment syndrome(97) (98) [ ]e) Cerebral bleeding, hydrocephalus, or vasospasm monitoring [ ]f) Increased intracranial pressure or cerebral edema monitoring [ ]g) monitoring [ ]XXVIII. Treatment requiring inpatient care; examples include: [ ]a) IV fluid to replace significant ongoing losses (greater than 3 L/m2 per day)(53) [ ]b) High concentration oxygen (greater than 40%)(33)(99)(100) [ ]c) Frequent respiratory therapy (more frequently than every 4 hours) to maintain airflow rates greater than 60% of baseline(33)(99)(100) [ ]d) Epidural analgesia(87) [ ]e) IV anticoagulation, vasoactive, or antiarrhythmic medication(19 )(23) [ ]f) Acute thrombolytics (generally require 24 hours of observation )(101)(102) [ ]XXIX. Emergency procedures needed; examples include: [ ]a) Emergency inpatient surgery [ ]b) Temporary pacemaker placement(103) [ ]c) Chest tube placement with active evacuation (eg, suction, drainage)(104) [ ]d) Emergent cardioversion(105) [ ]e) Emergent cardiac or vascular procedures (eg, cardiac catheterization, angioplasty) (17)(18) [ ]f) Emergent dialysis access placement and institution(10)(106) [ ]g) Emergent pericardiocentesis(107) [ ]h) Emergent plasmapheresis or leukapheresis(83) [ ]i) Emergent tracheostomy The original [employer] content created by [employer] has been revised. The portions of the content which have been revised are identified through the use of italic text or in bold, and [facility] has neither reviewed nor approved the modified material. All other unmodified content is copyright [employer]. Please see references footnoted in the original [facility] edition 2016 Admission Criteria Met?: Yes LASHA LÓPEZ Apr 26, 2017 02:18
[2017-04-26 05:39] LABS: CALCIUM 8.6 mg/dL (8.5-10.1); CREATININE 0.8 mg/dL (0.7-1.3); GFR 117.8; PHOSPHORUS 2.8 mg/dL (2.6-4.7); POTASSIUM 3.8 mmol/L (3.5-5.1)
[2017-04-26] MEDS ORDERED: INSULIN ASPART 300 UNITS/3 ML INSULN.PEN SQ SCH (08:00)
[2017-04-26] MEDS: INSULIN ASPART 300 UNITS/3 ML INSULN.PEN SQ SCH ×4 (08:27→12:19)
[2017-04-26] MEDS: metFORMIN 850 MG TABLET PO SCH (08:30)
--- NOTE | 2017-04-26 09:05 | RAD ---
INDICATION: Infectious symptoms with concern for pneumonia. COMPARISON: None. FINDINGS: 2 view of chest obtained No focal airspace consolidation. Mediastinal contour is unremarkable. No gross osseous destructive lesion. IMPRESSION: No definite focal airspace consolidation or edema.
[2017-04-26] MEDS ORDERED: METF1000 PO (10:29)
[2017-04-26] MEDS ORDERED: GLIM2TAB PO (10:29)
[2017-04-26] MEDS ORDERED: GLIMEPIRIDE 2 MG TABLET. PO SCH (11:00)
--- NOTE | 2017-04-26 12:42 | PDOC3 ---
Discharge Summary [facility] Date of Admission: Apr 25, 2017 Discharge Date: Apr 26, 2017 Admitting Diagnosis DKA uncontrolled dm likely 2 hypomagnesemia hypophosphatemia mild malnutrition Problems: Brief Hospital Course Mr. Cam is a 26 old M ; No insurance, takes metformin 500mg bid only for 2 years, fu with [facility], not sure if dm1 or 2, not check finger stick at home , and never seen an endo. came here found DKA, gap closed at night. Now feels good, no complains. Hba1c 11. asked sw to talk to him for insurance issues. give metformin 1000mg bid, glimepiride, glucometer to go home, limit sugar intake. dc time 40min. HEENT: Atraumatic, PERRLA, EOMI Lungs: Clear to auscultation, Normal air movement Heart: S1S2, RRR, no thrills, no rubs, no gallops, no murmurs Cardiovascular: S1, S2 Abdomen: Normal bowel sounds, Soft, No tenderness, No hepatosplenomegaly, No masses Male Genitals Exam: normal genitalia, normal prostate Rectal Exam: not examined PELVIC: Nml ext genitalia Extremities: No clubbing, No cyanosis, No edema, Normal pulses, No tenderness/ swelling Skin: No rashes, No breakdown, No significant lesion Neuro: Normal gait, Normal speech, Strength at 5/5 X4 ext, Normal tone, Sensation intact, Cranial nerves 3-12 NL, Reflexes 2+ Psych/Mental Status: Mental status NL, Mood NL Patient History: Family history: Diabetes mellitus (situation) Uncle Problems: Disposition home CONDITION AT DISCHARGE: Improved Diet ada Scheduled Glimepiride (Amaryl), 2 MG PO DAILY Metformin Hcl (Glucophage), 1,000 MG PO BIDWMEALS Discontinued Medications Metformin Hcl (Metformin Hcl), 500 MG PO BIDWMEALS, (Reported) Follow Up pcp in 1 week MIKKI MENDENHALL MD Apr 26, 2017 12:42
== END 2017-04-26 13:00 | disposition home or self-care (01) | DRG 638 ==
LOC: ER 11:31 → 1 WEST ICU 13:30
PROVIDERS: ADMIT Internal Medicine; ATTEND Internal Medicine
DX: E13.10 Other specified diabetes mellitus with ketoacidosis without coma (principal); E44.1 Mild protein-calorie malnutrition; R65.10 Systemic inflammatory response syndrome (SIRS) of non-infectious origin without acute organ dysfunction; E66.9 Obesity, unspecified; E83.39 Other disorders of phosphorus metabolism; D75.89 Other specified diseases of blood and blood-forming organs; E83.42 Hypomagnesemia; Z82.49 Family history of ischemic heart disease and other diseases of the circulatory system; Z79.84 Long term (current) use of oral hypoglycemic drugs; Z83.3 Family history of diabetes mellitus; Z68.27 Body mass index [BMI] 27.0-27.9, adult
CPT/HCPCS: 36415; 36600; 71020; 80048; 80076; 81001; 82553; 82805; 82962; 83036; 83690; 83735; 84100; 85027; 87641; 96361; 96365; G0481; J1815; J7030; J7060; 99291-25

== ENCOUNTER 2020-10-11 03:43 | Inpatient (IN) | payer BC ==
[~2020-10-11] VITALS: Ht 180.3 cm; Wt 80.5 kg
[~2020-10-11 03:43] MED LIST changes: +GLIM2TAB PO; +METF1000 PO; +METF500T16 PO; -METF850T2 PO; +METF850T8 PO
[2020-10-11] MEDS ORDERED: ONDANSETRON PF 4 MG/2 ML VIAL. IVP ONE (10:30)
[2020-10-11] MEDS ORDERED: IV NORMAL SALINE 1000ML BAG 1,000 ML IV ONE ×4 (10:30→18:45)
[2020-10-11 11:02] LABS: BASO # 0.1 x10^3/uL (0.0-0.2); BASO % 1 % (0-3); EOS % 0 % (0-3); HEMATOCRIT 52.5 % (39.0-53.0); HEMOGLOBIN 17.7 g/dL (13.0-17.5); LYMPH # 1.4 x10^3/uL (1.0-4.8); LYMPH % 9 % (24-48); MEAN CORPUSCULAR HEMOGLOBIN 29 pg (25-35); MEAN CORPUSCULAR HGB CONC 34 g/dL (31-37); MEAN CORPUSCULAR VOLUME 85 fL (79-100); MONO % 6 % (0-9); NEUT # 12.9 x10^3/uL (1.8-7.7); NEUT % 84 % (31-73); PLATELET COUNT 271 x10^3/uL (140-400); RED BLOOD COUNT 6.15 x10^6/uL (4.30-5.70); RED CELL DISTRIBUTION WIDTH 13.2 % (11.5-14.5); WHITE BLOOD COUNT 15.4 x10^3/uL (4.0-11.0)
[2020-10-11 11:21] LABS: ALBUMIN 4.1 g/dL (3.4-5.0); ALBUMIN/GLOBULIN RATIO 0.9 (1.0-1.7); CALCIUM 9.9 mg/dL (8.5-10.1); CREATININE 1.4 mg/dL (0.7-1.3); GFR 59.9; POTASSIUM 4.5 mmol/L (3.5-5.1); TOTAL BILIRUBIN 0.6 mg/dL (0.2-1.0); TOTAL PROTEIN 8.9 g/dL (6.4-8.2)
[2020-10-11 11:33] LABS: % BANDS 13 % (0-9); % BASOS 1 % (0-3); % LYMPHS 11 % (24-48); % MONOS 7 % (0-10); % SEGS 68 % (35-66); PLT ESTIMATE ADEQUATE (ADEQUATE)
[2020-10-11 11:58] LABS: BASE EXCESS ABG -19 mmol/L (-3-3); HCO3 ABG 7 mmol/L (21-28); PO2 ABG 116 mmHg (85-108); SAT O2 ABG 97 % (92-99)
[2020-10-11] MEDS ORDERED: IOHEXOL 300 MG/ML 100ML VIAL. IV ONE (12:00)
[2020-10-11] MEDS ORDERED: CONTRAST GIVEN. MC PRN (12:00)
[2020-10-11 12:02] LABS: FIO2 ABG 21; PCO2 ABG 19 mmHg (35-46)
--- NOTE | 2020-10-11 12:14 | PHYS DOC ---
Past Medical History Past Medical History: Diabetes-Type II Past Surgical History: No Surgical History Smoking Status: Never Smoker Alcohol Use: None Drug Use: None General Adult EDM: Chief Complaint: NAUSEA/VOMITING/DIARRHA HPI: HPI: Patient is a 30 year old male who presented to ER for evaluation of nausea vomiting and abdominal pain since last night. Patient denies any fever. Patient denies any diarrhea. Patient feels weak and dehydrated. Patient has history of diabetic, he is on Metformin. Patient denied being exposed to anybody who tested positive for COVID-19. Review of Systems: Review of Systems: Constitutional: Denies fever or chills. [] Eyes: Denies change in visual acuity. [] HENT: Denies nasal congestion or sore throat. [] Respiratory: Denies cough or shortness of breath. [] Cardiovascular: Denies chest pain or edema. [] GI: Positive for abdominal pain, nausea vomiting, no diarrhea. : Denies dysuria. [] Musculoskeletal: Denies back pain or joint pain. [] Integument: Denies rash. [] Neurologic: Denies headache, focal weakness or sensory changes. [] Endocrine: Denies polyuria or polydipsia. [] Lymphatic: Denies swollen glands. [] Psychiatric: Denies depression or anxiety. [] Heart Score: Risk Factors: Risk Factors: DM, Current or recent (<one month) smoker, HTN, HLP, family history of CAD, obesity. Risk Scores: Score 0 - 3: 2.5% MACE over next 6 weeks - Discharge Home Score 4 - 6: 20.3% MACE over next 6 weeks - Admit for Clinical Observation Score 7 - 10: 72.7% MACE over next 6 weeks - Early Invasive Strategies Current Medications: Current Medications Medications (Trade) Dose Ordered Sig/Kim Start Time Stop Time Status Last Admin Dose Admin Info (CONTRAST GIVEN -- Rx MONITORING) 1 each PRN DAILY PRN 10/11/20 12:00 10/13/20 11:59 Iohexol (Omnipaque 300 Mg/ml) 75 ml 1X ONCE 10/11/20 12:00 10/11/20 12:01 DC 10/11/20 12:03 75 ML Ondansetron HCl (Zofran) 4 mg 1X ONCE 10/11/20 10:30 10/11/20 10:34 DC 10/11/20 11:03 4 MG Sodium Chloride 1,000 ml @ 1,000 mls/hr 1X ONCE 10/11/20 11:45 10/11/20 12:44 10/11/20 11:52 1,000 MLS/HR Allergies: Allergies: Allergies Coded Allergies Type Severity Reaction Last Updated Verified No Known Drug Allergies 06/19/14 No Physical Exam: PE: Constitutional: Well developed, well nourished, mild acute distress, non-toxic appearance. [] HENT: Normocephalic, atraumatic, bilateral external ears normal, oropharynx dry, no oral exudates, nose normal. [] Eyes: PERRLA, EOMI, conjunctiva normal, no discharge. [] Neck: Normal range of motion, no tenderness, supple, no stridor. [] Cardiovascular: Sinus tachycardia, regular rhythm, no murmur [] Lungs & Thorax: Bilateral breath sounds clear to auscultation [] Abdomen: Bowel sounds normal, soft, there is tenderness to palpation in epigastric area, no masses, no pulsatile masses. [] Skin: Warm, dry, no erythema, no rash. [] Back: No tenderness, no CVA tenderness. [] Extremities: No tenderness, no cyanosis, no clubbing, ROM intact, no edema. [] Neurologic: Alert and oriented X 3, normal motor function, normal sensory function, no focal deficits noted. [] Psychologic: Affect normal, judgement normal, mood normal. [] Current Patient Data: Labs: Laboratory Tests Test 10/11/20 10:50 10/11/20 11:55 White Blood Count 15.4 x10^3/uL (4.0-11.0) H Red Blood Count 6.15 x10^6/uL (4.30-5.70) H Hemoglobin 17.7 g/dL (13.0-17.5) H Hematocrit 52.5 % (39.0-53.0) Mean Corpuscular Volume 85 fL (79-100) Mean Corpuscular Hemoglobin 29 pg (25-35) Mean Corpuscular Hemoglobin Concent 34 g/dL (31-37) Red Cell Distribution Width 13.2 % (11.5-14.5) Platelet Count 271 x10^3/uL (140-400) Neutrophils (%) (Auto) 84 % (31-73) H Lymphocytes (%) (Auto) 9 % (24-48) L Monocytes (%) (Auto) 6 % (0-9) Eosinophils (%) (Auto) 0 % (0-3) Basophils (%) (Auto) 1 % (0-3) Neutrophils # (Auto) 12.9 x10^3/uL (1.8-7.7) H Lymphocytes # (Auto) 1.4 x10^3/uL (1.0-4.8) Monocytes # (Auto) 1.0 x10^3/uL (0.0-1.1) Eosinophils # (Auto) 0.0 x10^3/uL (0.0-0.7) Basophils # (Auto) 0.1 x10^3/uL (0.0-0.2) Segmented Neutrophils % 68 % (35-66) H Band Neutrophils % 13 % (0-9) H Lymphocytes % 11 % (24-48) L Monocytes % 7 % (0-10) Basophils % 1 % (0-3) Platelet Estimate Adequate (ADEQUATE) Sodium Level 129 mmol/L (136-145) L Potassium Level 4.5 mmol/L (3.5-5.1) Chloride Level 95 mmol/L (98-107) L Carbon Dioxide Level 9 mmol/L (21-32) *L Anion Gap 25 (6-14) H Blood Urea Nitrogen 13 mg/dL (8-26) Creatinine 1.4 mg/dL (0.7-1.3) H Estimated GFR (Cockcroft-Gault) 59.9 BUN/Creatinine Ratio 9 (6-20) Glucose Level 387 mg/dL (70-99) H Calcium Level 9.9 mg/dL (8.5-10.1) Total Bilirubin 0.6 mg/dL (0.2-1.0) Aspartate Amino Transferase (AST) 11 U/L (15-37) L Alanine Aminotransferase (ALT) 23 U/L (16-63) Alkaline Phosphatase 122 U/L (46-116) H Total Protein 8.9 g/dL (6.4-8.2) H Albumin 4.1 g/dL (3.4-5.0) Albumin/Globulin Ratio 0.9 (1.0-1.7) L Lipase 425 U/L (73-393) H Acetone Level Sm pos (NEG) O2 Saturation 97 % (92-99) Arterial Blood pH 7.20 (7.35-7.45) *L Arterial Blood pCO2 at Patient Temp 19 mmHg (35-46) *L Arterial Blood pO2 at Patient Temp 116 mmHg (85-108) H Arterial Blood HCO3 7 mmol/L (21-28) L Arterial Blood Base Excess -19 mmol/L (-3-3) L FiO2 21 Laboratory Tests 10/11/20 10:50 Laboratory Tests 10/11/20 10:50 Vital Signs: Vital Signs Date Time Temp Pulse Resp B/P (MAP) Pulse Ox O2 Delivery O2 Flow Rate FiO2 10/11/20 07:47 97.8 120 20 124/88 (100) 99 Room Air 97.8 EKG: EKG: [] Radiology/Procedures: Radiology/Procedures: [][facility] [address] [place] [address] IMAGING REPORT Signed PATIENT: TJ HERNANDEZ ACCOUNT: [id number] : 1990 LOCATION: ER AGE: 30 SEX: M EXAM STATUS: REG ER ORD. PHYSICIAN: KEVIN CORBETT DO REASON: abdominal pain, nausea, vomiting PROCEDURE: CT ABD PELV W/ IV CONTRST ONLY EXAM: Abdomen and pelvis CT with intravenous contrast. HISTORY: Pain. TECHNIQUE: Computed tomographic images of the abdomen and pelvis were obtained following the administration of intravenous contrast. Multiplanar reformatting was performed. *One or more of the following individualized dose reduction techniques were u tilized for this examination: 1. Automated exposure control. 2. Adjustment of the mA and/or kV according to patient size. 3. Use of iterative reconstruction technique. COMPARISON: None. FINDINGS: Evaluation of the lower thorax is unremarkable. No hepatic lesion is seen. The gallbladder, pancreas, spleen, adrenal glands and stomach are unremarkable. There is mild right and minimal left hydronephrosis and urinary bladder distention likely due to the hydration status of the patient. No obst ructing lesion is seen. There is no appendicitis. There is no abnormal bowel wall thickening. The aorta is normal in caliber. There is no lymphadenopathy. There is no suspicious osseous lesion. IMPRESSION: 1. Prominent right greater than left renal collecting system and distended urinary bladder likely due to the hydration status of the patient. No obstructing lesion is seen. 2. Otherwise, unremarkable abdomen and pelvis CT. Electronically signed by: Twila Parikh MD (10/11/2020 12:13 PM) [facility] DICTATED and SIGNED BY: TWILA PARIKH MD DATE: 10/11/20 [id number] 0 Course & Med Decision Making: Course & Med Decision Making Pertinent Labs and Imaging studies reviewed. (See chart for details) Patient is a 30-year-old male with history of diabetic, presented to ER with nausea vomiting abdominal pain. Patient was found to be in DKA, severely dehydrated. Patient was given IV fluid in ER, IV nausea medication in ER, he feels better. Patient will be admitted to hospital for DKA treatment. Discussed with Dr. Groves who agreed to admit the patient. Leo Disclaimer: Leo Disclaimer: This electronic medical record was generated, in whole or in part, using a voice recognition dictation system. Departure Departure Impression: Primary Impression: DKA (diabetic ketoacidoses) Additional Impression: Dehydration Disposition: 09 ADMITTED INPT THIS HOSP Admitting Physician: HIM[facility] (DR. GROVES) Condition: IMPROVED Referrals: NO PCP (PCP) KEVIN CORBETT DO Oct 11, 2020 12:14
[2020-10-11] MEDS ORDERED: ONDANSETRON PF 4 MG/2 ML VIAL. IV PRN (12:45)
[2020-10-11] MEDS ORDERED: INSULIN REGULAR VIAL 100 UNIT in IV NORMAL SALINE 100ML 100 ML IV PRN ×2 (12:45)
[2020-10-11] MEDS ORDERED: INSULIN,REGULAR 100 UNIT DRIP 100 ML IV ONE (12:45)
[2020-10-11] MEDS ORDERED: POTASSIUM CHLORIDE 10MEQ 100 ML IV PRN ×2 (12:45)
--- NOTE | 2020-10-11 13:18 | HP ---
ADMIT DATE: 10/11/2020 CHIEF COMPLAINT: Elevated glucose. HISTORY OF PRESENT ILLNESS: The patient is a pleasant 30-year-old male who has had diabetes for the past 10 years. Basically, he presented today with DKA. I discussed the case with ER physician. We are going to admit the patient with DKA protocol. PAST MEDICAL HISTORY: Diabetes, hypertension, hyperlipidemia. ALLERGIES: None. FAMILY HISTORY: Diabetes. SOCIAL HISTORY: Does not drink, smoke or take drugs. He works at [employer]. MEDICATIONS: Reviewed, please refer to the MRAD. REVIEW OF SYSTEMS: GENERAL: No history of weight change, weakness or fevers. SKIN: No bruising, hair changes or rashes. EYES: No blurred, double or loss of vision. NOSE AND THROAT: No history of nosebleeds, hoarseness or sore throat. HEART: No history of palpitations, chest pain or shortness of breath on exertion. LUNGS: Denies cough, hemoptysis, wheezing or shortness of breath. GASTROINTESTINAL: Denies changes in appetite, nausea, vomiting, diarrhea or constipation. GENITOURINARY: No history of frequency, urgency, hesitancy or nocturia. NEUROLOGIC: Denies history of numbness, tingling, tremor or weakness. PSYCHIATRIC: No history of panic, anxiety or depression. ENDOCRINE: No history of heat or cold intolerance, polyuria or polydipsia. EXTREMITIES: Denies muscle weakness, joint pain, pain on walking or stiffness. PHYSICAL EXAMINATION: VITALS: Within normal limits and are stable. GENERAL: No apparent distress. Alert and oriented. HEENT: Normal cephalic atraumatic, external auditory canals are patent EYES: Extraocular muscles are intact, pupils are equally round and reactive to light and accommodation MUSCULOSKELETAL: Well developed, well nourished, good range of motion ENDOCRINE: No thyromegaly was palpated LYMPHATICS: No cervical chain or axillary nodes were noted HEMATOPOIETIC: No bruising NECK: Supple, no JVD, no thyromegaly was noted. LUNGS: Clear to auscultation in all lung wilkerson without rhonchi or wheezing. HEART: RRR, S1, S2 present. Peripheral pulses intact, no obvious murmurs were noted. ABDOMEN: Soft, nontender. Positive bowel sounds no organomegaly, normal bowel sounds. EXTREMITIES: Without any cyanosis, clubbing, or edema. Pedal pulses intact, Homans sign is negative. NEUROLOGIC: Normal speech, normal tone. A and O x3, moves all extremities, no obvious focal deficits. PSYCHIATRIC: Normal affect, normal mood. Stable. SKIN: No ulcerations or rashes, good skin turgor, no jaundice. VASCULAR: Good capillary refill, neurovascular bundle appears to be intact. ASSESSMENT AND PLAN: Diabetic ketoacidosis. The patient will be admitted. We will start insulin drip, insulin and fluids. Diabetic ketoacidosis protocol. Trend labs, home meds, deep vein thrombosis prophylaxis. Full code. ZAHRAA VALDEZ DO DR: MATTIE/tessa JOB#: [id number] / [id number]
[2020-10-11] MEDS: POTASSIUM CHLORIDE 10MEQ 100 ML IV SCH ×2 (14:00→15:00)
[2020-10-11] MEDS: POTASSIUM CHLORIDE 10MEQ 100 ML IV PRN ×2 (14:32→16:17)
[2020-10-11 16:59] LABS: BILIRUBIN,URINE NEGATIVE (NEG); CLARITY,URINE CLEAR; COLOR,URINE YELLOW; NITRITE,URINE NEGATIVE (NEG); PH,URINE 5.5 (<5.0-8.0); PROTEIN,URINE NEGATIVE (NEG-TRACE); UROBILINOGEN,URINE 0.2 mg/dL (0.2 mg/dL)
[2020-10-11] MEDS ORDERED: IV DEXTROSE 5 %-0.45 % NACL 1,000 ML IV ONE (17:00)
[2020-10-11 17:04] LABS: BACTERIA,URINE 0 /HPF (0-FEW); RBC,URINE 0 /HPF (0-2); WBC,URINE 0 /HPF (0-4)
[2020-10-11 17:40] LABS: CALCIUM 8.3 mg/dL (8.5-10.1); CREATININE 1.2 mg/dL (0.7-1.3); GFR 71.6; POTASSIUM 4.1 mmol/L (3.5-5.1)
[2020-10-11 17:43] LABS: MAGNESIUM 1.7 mg/dL (1.8-2.4); PHOSPHORUS 1.6 mg/dL (2.6-4.7)
[2020-10-11] MEDS ORDERED: MAGNESIUM SULFATE 2GM 50 ML IV ONE (19:00)
[2020-10-11] MEDS: INSULIN LISPRO 300 UNITS/3 ML VIAL. SQ SCH (19:00)
[2020-10-11] MEDS: POTASSIUM & SODIUM PHOSPHATES PACKET. PO SCH (19:27)
[2020-10-11 21:00] VITALS: BP 112/65
[2020-10-11] MEDS ORDERED: INSULIN GLARGINE SYRINGE. SQ SCH (21:00)
[2020-10-11 23:00] VITALS: BP 120/74
[2020-10-12 03:00] VITALS: BP 128/72
[2020-10-12 07:00] VITALS: BP 116/80
[2020-10-12] MEDS: INSULIN LISPRO 300 UNITS/3 ML VIAL. SQ SCH ×2 (09:00→12:30)
[2020-10-12] MEDS ORDERED: FLU VACC QS 2020-21(6MOS+)/PF 0.5 ML SYRINGE. VAX IM ONE (09:00)
[2020-10-12] MEDS: POTASSIUM & SODIUM PHOSPHATES PACKET. PO SCH (09:06)
[2020-10-12 11:00] VITALS: BP 110/71
[2020-10-12 12:04] LABS: CALCIUM 8.5 mg/dL (8.5-10.1); GFR 88.3; POTASSIUM 3.6 mmol/L (3.5-5.1)
--- NOTE | 2020-10-12 12:59 | PDOC ---
[employer] PROGRESS NOTE Date of Service DOS: DATE: 10/12/20 TIME: 12:58 Chief Complaint Chief Complaint A/P: DKA - gap closed. Leukocytosis - SIRS due to DKA most likely, no clear source of infection. History of Present Illness History of Present Illness 30-year-old male who has had diabetes for the past 10 years. Admitted with DKA. Gap closed overnight. He is afebrile. tolerating diet well. Vitals/I&O Vitals/I&O: Vital Signs Date Time Temp Pulse Resp B/P (MAP) Pulse Ox O2 Delivery O2 Flow Rate FiO2 10/12/20 11:00 82 16 110/71 (84) 100 Room Air 10/11/20 07:47 97.8 97.8 I & O 10/11/20 10/11/20 10/12/20 15:00 23:00 07:00 Intake Total 3000 ml 200 ml 500 ml Output Total 2200 ml Balance 3000 ml -2000 ml 500 ml Physical Exam Lungs: Clear Labs Labs: Laboratory Tests Test 10/11/20 13:09 10/11/20 14:30 10/11/20 15:36 10/11/20 16:45 Glucose (Fingerstick) 275 mg/dL (70-99) 254 mg/dL (70-99) 212 mg/dL (70-99) Urine Collection Type Unknown Urine Color Yellow Urine Clarity Clear Urine pH 5.5 (<5.0-8.0) Urine Specific [place] >=1.030 (1.000-1.030) Urine Protein Negative mg/dL (NEG-TRACE) Urine Glucose (UA) >=1000 mg/dL (NEG) Urine Ketones (Stick) >=80 mg/dL (NEG) Urine Blood Negative (NEG) Urine Nitrite Negative (NEG) Urine Bilirubin Negative (NEG) Urine Urobilinogen Dipstick 0.2 mg/dL (0.2 mg/dL) Urine Leukocyte Esterase Negative (NEG) Urine RBC 0 /HPF (0-2) Urine WBC 0 /HPF (0-4) Urine Bacteria 0 /HPF (0-FEW) Test 10/11/20 16:46 10/11/20 17:20 10/11/20 17:54 10/11/20 19:22 Glucose (Fingerstick) 190 mg/dL (70-99) 175 mg/dL (70-99) 258 mg/dL (70-99) Sodium Level 135 mmol/L (136-145) Potassium Level 4.1 mmol/L (3.5-5.1) Chloride Level 106 mmol/L (98-107) Carbon Dioxide Level 16 mmol/L (21-32) Anion Gap 13 (6-14) Blood Urea Nitrogen 9 mg/dL (8-26) Creatinine 1.2 mg/dL (0.7-1.3) Estimated GFR (Cockcroft-Gault) 71.6 Glucose Level 176 mg/dL (70-99) Calcium Level 8.3 mg/dL (8.5-10.1) Phosphorus Level 1.6 mg/dL (2.6-4.7) Magnesium Level 1.7 mg/dL (1.8-2.4) Test 10/11/20 20:22 10/11/20 21:20 10/12/20 08:29 10/12/20 11:31 Glucose (Fingerstick) 211 mg/dL (70-99) 201 mg/dL (70-99) 232 mg/dL (70-99) Sodium Level 137 mmol/L (136-145) Potassium Level 3.6 mmol/L (3.5-5.1) Chloride Level 105 mmol/L (98-107) Carbon Dioxide Level 21 mmol/L (21-32) Anion Gap 11 (6-14) Blood Urea Nitrogen 8 mg/dL (8-26) Creatinine 1.0 mg/dL (0.7-1.3) Estimated GFR (Cockcroft-Gault) 88.3 Glucose Level 272 mg/dL (70-99) Calcium Level 8.5 mg/dL (8.5-10.1) Test 10/12/20 12:15 Glucose (Fingerstick) 221 mg/dL (70-99) Assessment and Plan Assessmemt and Plan Problems Medical Problems: (1) Dehydration Status: Acute Comment Review of Relevant I have reviewed the following items jenny (where applicable) has been applied. Medications: Current Medications Medications (Trade) Dose Ordered Sig/Kim Route PRN Reason Start Time Stop Time Status Last Admin Dose Admin Dextrose/Sodium Chloride 1,000 ml @ 250 mls/hr 1X ONCE IV 10/11/20 17:00 10/11/20 20:59 DC 10/11/20 17:32 Potassium Phos/ Sodium Phos (Phos-Nak) 1 pkt DAILY PO 10/11/20 19:00 10/12/20 09:06 Magnesium Sulfate 50 ml @ 25 mls/hr 1X ONCE IV 10/11/20 19:00 10/11/20 20:59 DC 10/11/20 19:35 Sodium Chloride 1,000 ml @ 75 mls/hr 1X ONCE IV 10/11/20 18:45 10/12/20 08:04 DC 10/11/20 19:34 Insulin Human Lispro (HumaLOG) 5 units TIDWMEALS SQ 10/11/20 19:00 10/12/20 12:30 Insulin Glargine (Lantus Syringe) 10 unit QHS SQ 10/11/20 21:00 10/11/20 19:30 Influenza Virus Vaccine Quadrival (Fluzone Quad Syringe) 0.5 ml ONCE ONCE VAX IM 10/12/20 09:00 10/12/20 09:01 DC 10/12/20 12:32 Justifications for Admission Other Justification MILAGRO CULLEN MD Oct 12, 2020 12:59
--- NOTE | 2020-10-12 13:59 | NUR ---
SW following for discharge planning. Spoke with RN and reviewed chart. Pt COVID pending, room air, ADA diet, IV fluids. Discharge plan is home, self-care. SW available as needed. Addendum: 10/13/20 at 1122 by NELLIE CHRISTIANSON Pt discharged home, self-care. No further SW needs at this time.
[2020-10-12] MEDS ORDERED: METF1000 PO (14:11)
[2020-10-12] MEDS ORDERED: LINA5TAB PO (14:11)
[2020-10-12] MEDS ORDERED: GLIM2TAB PO (14:11)
[2020-10-12] MEDS ORDERED: GLIMEPIRIDE 2 MG TABLET. PO SCH (14:15)
--- NOTE | 2020-10-12 14:15 | PDOC3 ---
Discharge Summary Visit Information Date of Admission: Oct 11, 2020 Date of Discharge: Oct 12, 2020 Admitting Diagnosis: DKA Final Diagnosis Problems Medical Problems: (1) Dehydration Status: Acute Brief Hospital Course Allergies Allergies Coded Allergies Type Severity Reaction Last Updated Verified No Known Drug Allergies 06/19/14 No Vital Signs Vital Signs Date Time Temp Pulse Resp B/P (MAP) Pulse Ox O2 Delivery O2 Flow Rate FiO2 10/12/20 11:00 82 16 110/71 (84) 100 Room Air 10/11/20 07:47 97.8 97.8 Lab Results Laboratory Tests Test 10/11/20 10:50 10/11/20 11:55 10/11/20 13:09 10/11/20 14:30 White Blood Count 15.4 x10^3/uL (4.0-11.0) Red Blood Count 6.15 x10^6/uL (4.30-5.70) Hemoglobin 17.7 g/dL (13.0-17.5) Hematocrit 52.5 % (39.0-53.0) Mean Corpuscular Volume 85 fL (79-100) Mean Corpuscular Hemoglobin 29 pg (25-35) Mean Corpuscular Hemoglobin Concent 34 g/dL (31-37) Red Cell Distribution Width 13.2 % (11.5-14.5) Platelet Count 271 x10^3/uL (140-400) Neutrophils (%) (Auto) 84 % (31-73) Lymphocytes (%) (Auto) 9 % (24-48) Monocytes (%) (Auto) 6 % (0-9) Eosinophils (%) (Auto) 0 % (0-3) Basophils (%) (Auto) 1 % (0-3) Neutrophils # (Auto) 12.9 x10^3/uL (1.8-7.7) Lymphocytes # (Auto) 1.4 x10^3/uL (1.0-4.8) Monocytes # (Auto) 1.0 x10^3/uL (0.0-1.1) Eosinophils # (Auto) 0.0 x10^3/uL (0.0-0.7) Basophils # (Auto) 0.1 x10^3/uL (0.0-0.2) Segmented Neutrophils % 68 % (35-66) Band Neutrophils % 13 % (0-9) Lymphocytes % 11 % (24-48) Monocytes % 7 % (0-10) Basophils % 1 % (0-3) Platelet Estimate Adequate (ADEQUATE) Sodium Level 129 mmol/L (136-145) Potassium Level 4.5 mmol/L (3.5-5.1) Chloride Level 95 mmol/L (98-107) Carbon Dioxide Level 9 mmol/L (21-32) Anion Gap 25 (6-14) Blood Urea Nitrogen 13 mg/dL (8-26) Creatinine 1.4 mg/dL (0.7-1.3) Estimated GFR (Cockcroft-Gault) 59.9 BUN/Creatinine Ratio 9 (6-20) Glucose Level 387 mg/dL (70-99) Calcium Level 9.9 mg/dL (8.5-10.1) Total Bilirubin 0.6 mg/dL (0.2-1.0) Aspartate Amino Transf (AST/SGOT) 11 U/L (15-37) Alanine Aminotransferase (ALT/SGPT) 23 U/L (16-63) Alkaline Phosphatase 122 U/L (46-116) Total Protein 8.9 g/dL (6.4-8.2) Albumin 4.1 g/dL (3.4-5.0) Albumin/Globulin Ratio 0.9 (1.0-1.7) Lipase 425 U/L (73-393) Acetone Level Sm pos (NEG) O2 Saturation 97 % (92-99) Arterial Blood pH 7.20 (7.35-7.45) Arterial Blood pCO2 at Patient Temp 19 mmHg (35-46) Arterial Blood pO2 at Patient Temp 116 mmHg (85-108) Arterial Blood HCO3 7 mmol/L (21-28) Arterial Blood Base Excess -19 mmol/L (-3-3) FiO2 21 Glucose (Fingerstick) 275 mg/dL (70-99) 254 mg/dL (70-99) Test 10/11/20 15:36 10/11/20 16:45 10/11/20 16:46 10/11/20 17:20 Glucose (Fingerstick) 212 mg/dL (70-99) 190 mg/dL (70-99) Urine Collection Type Unknown Urine Color Yellow Urine Clarity Clear Urine pH 5.5 (<5.0-8.0) Urine Specific [place] >=1.030 (1.000-1.030) Urine Protein Negative mg/dL (NEG-TRACE) Urine Glucose (UA) >=1000 mg/dL (NEG) Urine Ketones (Stick) >=80 mg/dL (NEG) Urine Blood Negative (NEG) Urine Nitrite Negative (NEG) Urine Bilirubin Negative (NEG) Urine Urobilinogen Dipstick 0.2 mg/dL (0.2 mg/dL) Urine Leukocyte Esterase Negative (NEG) Urine RBC 0 /HPF (0-2) Urine WBC 0 /HPF (0-4) Urine Bacteria 0 /HPF (0-FEW) Sodium Level 135 mmol/L (136-145) Potassium Level 4.1 mmol/L (3.5-5.1) Chloride Level 106 mmol/L (98-107) Carbon Dioxide Level 16 mmol/L (21-32) Anion Gap 13 (6-14) Blood Urea Nitrogen 9 mg/dL (8-26) Creatinine 1.2 mg/dL (0.7-1.3) Estimated GFR (Cockcroft-Gault) 71.6 Glucose Level 176 mg/dL (70-99) Calcium Level 8.3 mg/dL (8.5-10.1) Phosphorus Level 1.6 mg/dL (2.6-4.7) Magnesium Level 1.7 mg/dL (1.8-2.4) Test 10/11/20 17:54 10/11/20 19:22 10/11/20 20:22 10/11/20 21:20 Glucose (Fingerstick) 175 mg/dL (70-99) 258 mg/dL (70-99) 211 mg/dL (70-99) 201 mg/dL (70-99) Test 10/12/20 08:29 10/12/20 11:31 10/12/20 12:15 Glucose (Fingerstick) 232 mg/dL (70-99) 221 mg/dL (70-99) Sodium Level 137 mmol/L (136-145) Potassium Level 3.6 mmol/L (3.5-5.1) Chloride Level 105 mmol/L (98-107) Carbon Dioxide Level 21 mmol/L (21-32) Anion Gap 11 (6-14) Blood Urea Nitrogen 8 mg/dL (8-26) Creatinine 1.0 mg/dL (0.7-1.3) Estimated GFR (Cockcroft-Gault) 88.3 Glucose Level 272 mg/dL (70-99) Calcium Level 8.5 mg/dL (8.5-10.1) Laboratory Tests Test 10/11/20 14:30 10/11/20 15:36 10/11/20 16:45 10/11/20 16:46 Glucose (Fingerstick) 254 mg/dL (70-99) 212 mg/dL (70-99) 190 mg/dL (70-99) Urine Collection Type Unknown Urine Color Yellow Urine Clarity Clear Urine pH 5.5 (<5.0-8.0) Urine Specific [place] >=1.030 (1.000-1.030) Urine Protein Negative mg/dL (NEG-TRACE) Urine Glucose (UA) >=1000 mg/dL (NEG) Urine Ketones (Stick) >=80 mg/dL (NEG) Urine Blood Negative (NEG) Urine Nitrite Negative (NEG) Urine Bilirubin Negative (NEG) Urine Urobilinogen Dipstick 0.2 mg/dL (0.2 mg/dL) Urine Leukocyte Esterase Negative (NEG) Urine RBC 0 /HPF (0-2) Urine WBC 0 /HPF (0-4) Urine Bacteria 0 /HPF (0-FEW) Test 10/11/20 17:20 10/11/20 17:54 10/11/20 19:22 10/11/20 20:22 Sodium Level 135 mmol/L (136-145) Potassium Level 4.1 mmol/L (3.5-5.1) Chloride Level 106 mmol/L (98-107) Carbon Dioxide Level 16 mmol/L (21-32) Anion Gap 13 (6-14) Blood Urea Nitrogen 9 mg/dL (8-26) Creatinine 1.2 mg/dL (0.7-1.3) Estimated GFR (Cockcroft-Gault) 71.6 Glucose Level 176 mg/dL (70-99) Calcium Level 8.3 mg/dL (8.5-10.1) Phosphorus Level 1.6 mg/dL (2.6-4.7) Magnesium Level 1.7 mg/dL (1.8-2.4) Glucose (Fingerstick) 175 mg/dL (70-99) 258 mg/dL (70-99) 211 mg/dL (70-99) Test 10/11/20:20 10/12/20 08:29 10/12/20 11:31 10/12/20 12:15 Glucose (Fingerstick) 201 mg/dL (70-99) 232 mg/dL (70-99) 221 mg/dL (70-99) Sodium Level 137 mmol/L (136-145) Potassium Level 3.6 mmol/L (3.5-5.1) Chloride Level 105 mmol/L (98-107) Carbon Dioxide Level 21 mmol/L (21-32) Anion Gap 11 (6-14) Blood Urea Nitrogen 8 mg/dL (8-26) Creatinine 1.0 mg/dL (0.7-1.3) Estimated GFR (Cockcroft-Gault) 88.3 Glucose Level 272 mg/dL (70-99) Calcium Level 8.5 mg/dL (8.5-10.1) Brief Hospital Course Mr Cam is a 30-year-old male who has had diabetes for the past 10 years who presented with 2 day history of Nausea, vomiting and abdominal pain. Admitted with DKA. Gap closed overnight. He is afebrile. tolerating diet well. CT abdomen pelvis negative for abnormality. COVID 19 testing performed, pending at time of d/c. He notes he has run out of metformin and amaryl and does not have a consistent PCP with whom he follows. Problem list: DKA - gap closed. Leukocytosis - SIRS due to DKA most likely, no clear source of infection. Greater than 30 minutes spent on d/c home Discharge Information Condition at Discharge: Improved Follow Up: Weeks Disposition/Orders: D/C to Home Scheduled Glimepiride (Amaryl) 2 Mg Tablet, 2 MG PO DAILY for DM2 for 90 Days, #90 Ref 3 Prescribed by: MILAGRO CULLEN MD on 10/12/20 1411 Linagliptin (Tradjenta) 5 Mg Tablet, 5 MG PO DAILY for TYPE 2 DIABETES for 90 Days, #90 Ref 1 Prescribed by: MILAGRO CULLEN MD on 10/12/20 1411 Metformin Hcl (Glucophage) 1,000 Mg Tablet, 1,000 MG PO BIDWMEALS for DM2 for 90 Days, #180 Ref 1 Prescribed by: MILAGRO CULLEN MD on 1/4/21 1411 Justicifation of Admission Dx: Justifications for Admission: Justification of Admission Dx: Yes MILAGRO CULLEN MD Oct 12, 2020 14:15
--- NOTE | 2020-10-12 16:34 | NUR ---
Discharge Note: VIPUL HERNANDEZ [facility] Discharge instructions and discharge home medications reviewed with patient and a copy given. All questions have been answered and understanding verbalized. The following instructions and handouts were given: Take home meds as directed. Monitor glucose at home and record. Watch out for symptoms of hypo or hyperglycemia. Watch out for severe weakness, dyspnea, nausea, vomiting, and fever Follow up with PCP in a week. Patient teaching done regarding importance of adherence to treatment, follow up with medical providers to achieve glucose control. Discontinued lines and drains: peripheral IV intact, patient tolerated removal, no complications noted. Patient discharged to home on room air, ambulatory at 1535.
[2020-10-12] MEDS ORDERED: metFORMIN 500 MG TABLET PO SCH (17:00)
== END 2020-10-12 15:35 | disposition home or self-care (01) | DRG 638 ==
LOC: ER 03:43 → 6 SOUTH 20:39
PROVIDERS: ADMIT Internal Medicine; ATTEND Internal Medicine
DX: E11.10 Type 2 diabetes mellitus with ketoacidosis without coma (principal); R65.10 Systemic inflammatory response syndrome (SIRS) of non-infectious origin without acute organ dysfunction; E78.5 Hyperlipidemia, unspecified; E86.0 Dehydration; I10 Essential (primary) hypertension; Z83.3 Family history of diabetes mellitus; Z20.828 Contact with and (suspected) exposure to other viral communicable diseases
CPT/HCPCS: 36415; 36600; 74177; 80048; 80053; 81001; 82010; 82805; 82962; 83690; 83735; 84100; 85007; 85025; 90471; 90686; 96365; 96366; 96367; 96368; 96372; J1815; J2405; J3475; J3480; J7030; J7042; Q9967; U0003; 99285-25; G0378